=== PATIENT | female | born 1980 | race Two or more races ===

== ENCOUNTER 2021-08-02 13:30 | Inpatient (IN) | payer OTHER ==
[~2021-08-02] VITALS: Ht 157.5 cm; Wt 83.9 kg
[2021-08-03] MEDS ORDERED: LEVOTHYROXINE25 MCG PO (08:04)
== END 2021-08-06 11:17 | disposition home or self-care (01) | DRG 743 ==
LOC: O/R 08-03 07:40 → OB/GYN 08-03 07:40 → SURH 08-03 13:30 → OB/GYN 08-03 16:42
PROVIDERS: ADMIT Specialist; ATTEND Specialist
PROC: 0UB70ZZ Excision of Bilateral Fallopian Tubes, Open Approach (ICD-10-PCS; 2021-08-03)
PROC: 0UT90ZZ Resection of Uterus, Open Approach (ICD-10-PCS; principal; 2021-08-03 15:00)
DX: N84.1 Polyp of cervix uteri (principal); N80.0 Endometriosis of uterus; D50.0 Iron deficiency anemia secondary to blood loss (chronic); I10 Essential (primary) hypertension; E03.9 Hypothyroidism, unspecified; E66.01 Morbid (severe) obesity due to excess calories